=== PATIENT | female | born 1965 | race Two or more races ===

== ENCOUNTER 2025-04-30 11:29 | Emergency (ER) | payer BC ==
[~2025-04-30] VITALS: Ht 162.6 cm; Wt 60.0 kg
[2025-04-30 11:32] VITALS: TEMP 36.6; O2SAT 96
[2025-04-30] MEDS: MORPHINE SULFATE 4 MG/ML INJ (FOR IV/IM USE) IV ONE (12:57)
[2025-04-30] MEDS: LORAZEPAM 2MG/ML UD SYRINGE IV NR (12:57)
[2025-04-30] MEDS: SODIUM CHLORIDE 0.9% 1,000 ML IV ONE (12:58)
[2025-04-30 13:33] LABS: BASOPHILS % 0.5 % (0.0-2.0); EOSINOPHILS % 0.4 % (0.0-5.0); HEMATOCRIT. 36.6 % (36.0-48.0); HEMOGLOBIN. 12.1 g/dL (12.0-16.0); LYMPHOCYTES % 8.8 % (20.0-50.0); MEAN PLATELET VOLUME 7.9 fl (7.4-10.4); MONOCYTES % 4.1 % (2.0-8.0); NEUTROPHILS % 86.2 % (40.0-76.0); PLATELET 248 x1000/uL (130-400); RED BLOOD CELL COUNT 4.27 mill/uL (4.2-5.4); RED CELL DISTRIBUTION WIDTH 14.1 % (11.6-14.6)
[2025-04-30 13:46] LABS: CREATININE 0.8 mg/dL (0.6-1.0); UREA NITROGEN BLOOD 14 mg/dL (9-23)
[2025-04-30 13:47] LABS: TROPONIN I HIGH SENSITIVITY < 4 ng/L (3.0-34)
[2025-04-30 13:48] LABS: ASPARTATE AMINOTRANSFERASE 21 IU/L (<34); BILIRUBIN DIRECT 0.1 mg/dL (<=3.0)
[2025-04-30 13:49] LABS: BILIRUBIN TOTAL 0.5 mg/dL (0.1-1.0); PROTEIN TOTAL 5.7 g/dL (6.0-8.3)
[2025-04-30] MEDS: MORPHINE SULFATE 4 MG/ML INJ (FOR IV/IM USE) IV NR (14:28)
[2025-04-30] MEDS ORDERED: IBUP-2030 MT (14:49)
[2025-04-30 16:30] VITALS: BP 123/66; PULSE 68; RESP 16; O2SAT 100
[2025-04-30] MEDS: KETOROLAC 15MG/ML VIAL IV ONE (16:31)
== END 2025-04-30 16:59 | disposition home or self-care (01) ==
LOC: ER 11:29 → CANBEDREQ 15:03 → ER 16:59
DX: S52.572A Other intraarticular fracture of lower end of left radius, initial encounter for closed fracture (principal); S52.612A Displaced fracture of left ulna styloid process, initial encounter for closed fracture; R06.02 Shortness of breath; Z79.899 Other long term (current) drug therapy; W19.XXXA Unspecified fall, initial encounter; Y93.89 Activity, other specified; Y92.89 Other specified places as the place of occurrence of the external cause; Y99.8 Other external cause status
CPT/HCPCS: 25605; 80076; 80048; 83880; 83735; 85025; 85379; 84484; 36415; 71045; 73100; 73110; 99284; 96361; 96374; 96375; J2060; J2270; J7030; A6449